=== PATIENT | female | born 1935 | race Caucasian/White ===

== ENCOUNTER 2019-03-20 12:14 | Emergency (ER) | payer MEDICARE, OTHER ==
[~2019-03-20] VITALS: Ht 157.5 cm; Wt 81.6 kg
[2019-03-20 12:14] VITALS: BP_SYST 178
--- NOTE | 2019-03-20 12:14 | NUR ---
BROUGHT IN BY [facility], PLACED IN BED #2, REPORT GIVEN TO SUKUMAR
--- NOTE | 2019-03-20 12:30 | NUR ---
Pt brought by [facility]UZ[facility], pt presents to ER with chest pain starting 2 hours ago , VSS, skin pink and warm, cap refill <3, respirations even and unlabored.
--- NOTE | 2019-03-20 12:34 | NUR ---
Dr Mcintosh at bedside examining patient
[2019-03-20] MEDS ORDERED: NITROGLYCERIN 1 INCH (GM) OINT. TD ONE (12:45)
[2019-03-20] MEDS ORDERED: NITROGLYCERIN 0.4 MG TAB.SUBL SL ONE (12:45)
[2019-03-20 13:25] LABS: BASOPHILS % (AUTO) 0.4 % (0.0-2.0); EOSINOPHILS % (AUTO) 0.7 % (0.0-4.0); HEMATOCRIT 34.6 % (36-48); HEMOGLOBIN 11.2 g/dL (12.0-16.0); LYMPHOCYTES # (AUTO) 0.5 K/uL (1.0-5.5); LYMPHOCYTES % (AUTO) 8.2 % (20.5-51.5); MEAN CORPUSCULAR HEMOGLOBIN 29 pg (27-31); MEAN CORPUSCULAR HGB CONC 32 % (32-36); MEAN CORPUSCULAR VOLUME 90 fL (79.0-98.0); MONOCYTES # (AUTO) 0.5 K/uL (0.0-1.0); MONOCYTES % (AUTO) 8.9 % (1.7-9.3); NEUTROPHILS % (AUTO) 81.8 % (40.0-70.0); PLATELET COUNT (AUTO) 130 K/uL (130-430); RED BLOOD CELL COUNT(AUTO) 3.83 MIL/uL (4.2-6.2); RED CELL DISTRIBUTION WIDTH 16.8 % (9.0-15.0); WHITE BLOOD COUNT (AUTO) 6.1 K/uL (4.8-10.8)
[2019-03-20 13:42] LABS: ANION GAP 5 (5-15); CHLORIDE 101 mmol/L (98-107); GLUCOSE 191 mg/dL (70-99); POTASSIUM 3.4 mmol/L (3.5-5.1); SODIUM SERUM 133 mmol/L (136-145); UREA NITROGEN, BLOOD 43 mg/dL (8-21)
[2019-03-20 13:46] LABS: ALANINE AMINOTRANSFERASE 21 U/L (12-78); ALBUMIN 3.3 g/dL (3.4-4.8); ASPARTATE AMINOTRANSFERASE 14 U/L (10-37); TOTAL BILIRUBIN 0.6 mg/dL (0.0-1.0)
[2019-03-20] MEDS ORDERED: FUROSEMIDE 40 MG/4 ML VIAL IVP ONE (16:30)
[2019-03-20] MEDS ORDERED: traMADol HCL HCL 50 MG TABLET (ULTRAM) PO ONE (16:30)
[2019-03-20] MEDS ORDERED: traMADol HCL HCL 50 MG TABLET (ULTRAM) ONE (17:00)
--- NOTE | 2019-03-20 17:41 | NUR ---
Patient to be transferred to [facility]. Is being transferred due to higher level of care. Receiving facility has accepting physician and available space. ER physician has signed transfer form. Patient or responsible constitution party has agreed to transfer and signed form. Patient belongings inventoried and will be sent with patient. Copy of nursing notes, lab reports, EKG, Physicians Orders and X-rays to be sent with patient. Report called to YANG Baldwin at receiving facility. Receiving physician is Dr. Lopez. [facility] service has been called for transfer. ETA is now.
[2019-03-20 17:42] VITALS: BP_SYST 150
== END 2019-03-20 17:42 | disposition short-term general hospital (02) ==
LOC: SED 12:14
DX: R07.89 Other chest pain (principal); E11.9 Type 2 diabetes mellitus without complications; Z88.0 Allergy status to penicillin; Z88.6 Allergy status to analgesic agent
CPT/HCPCS: 36415; 71045; 80053; 82550; 84484; 85025; 85379; 96374; 99285; J1940

== ENCOUNTER 2019-03-31 08:31 | Emergency (ER) | payer MEDICARE, OTHER ==
[~2019-03-31] VITALS: Ht 157.5 cm; Wt 81.6 kg
[2019-03-31 08:31] VITALS: BP_SYST 179
--- NOTE | 2019-03-31 08:31 | NUR ---
BROUGHT IN BY [facility], PLACED IN BED #6 AND TRIAGED. REPORT GIVEN TO JEANCARLOS
--- NOTE | 2019-03-31 08:32 | NUR ---
Patient came in by EMS from [facility]. Patient has had a recent CA and is complaining of chest pain x3 days. Patient denies nausea and diarrhea. On examination patient has left upper quadrant pain radiating to the back made worse on palpation.
--- NOTE | 2019-03-31 08:55 | NUR ---
ER Dr. Johnson at bedside examining patient.
[2019-03-31] MEDS ORDERED: NACL 0.9% 1,000 ML IV ONE (09:11)
[2019-03-31] MEDS ORDERED: MORPHINE 2 MG/ML INJ. SYRINGE IVP ONE (09:15)
[2019-03-31] MEDS ORDERED: FAMOTIDINE PF 20 MG/2 ML VIAL IVP ONE ×2 (09:15→14:30)
--- NOTE | 2019-03-31 09:49 | NUR ---
Patient transported to radiology via gurney, accompanied by operating room surgical technician.
[2019-03-31 09:56] LABS: BASOPHILS % (AUTO) 0.6 % (0.0-2.0); EOSINOPHILS # (AUTO) 0.1 K/uL (0.0-0.4); EOSINOPHILS % (AUTO) 1.2 % (0.0-4.0); HEMATOCRIT 29.5 % (36-48); HEMOGLOBIN 9.5 g/dL (12.0-16.0); LYMPHOCYTES # (AUTO) 0.7 K/uL (1.0-5.5); LYMPHOCYTES % (AUTO) 10.2 % (20.5-51.5); MEAN CORPUSCULAR HEMOGLOBIN 29 pg (27-31); MEAN CORPUSCULAR HGB CONC 32 % (32-36); MEAN CORPUSCULAR VOLUME 91 fL (79.0-98.0); MONOCYTES # (AUTO) 0.7 K/uL (0.0-1.0); MONOCYTES % (AUTO) 11.2 % (1.7-9.3); NEUTROPHILS % (AUTO) 76.8 % (40.0-70.0); PLATELET COUNT (AUTO) 126 K/uL (130-430); RED BLOOD CELL COUNT(AUTO) 3.26 MIL/uL (4.2-6.2); RED CELL DISTRIBUTION WIDTH 16.5 % (9.0-15.0); WHITE BLOOD COUNT (AUTO) 6.5 K/uL (4.8-10.8)
[2019-03-31 10:10] LABS: ANION GAP 2 (5-15); CALCIUM 7.6 mg/dL (8.4-11.0); CHLORIDE 97 mmol/L (98-107); CREATININE 1.19 mg/dL (0.55-1.30); GLUCOSE 157 mg/dL (70-99); SODIUM SERUM 133 mmol/L (136-145); UREA NITROGEN, BLOOD 35 mg/dL (8-21)
[2019-03-31 10:15] LABS: ALANINE AMINOTRANSFERASE 14 U/L (12-78); ALBUMIN 2.7 g/dL (3.4-4.8); ASPARTATE AMINOTRANSFERASE 7 U/L (10-37); TOTAL BILIRUBIN 0.7 mg/dL (0.0-1.0)
[2019-03-31] MEDS ORDERED: MORPHINE 4 MG/ML INJ. SYRINGE IVP ONE (10:45)
[2019-03-31 11:45] LABS: BILIRUBIN,URINE NEGATIVE (NEGATIVE); BLOOD, URINE 2+ (NEGATIVE); CLARITY/URINE CLEAR (CLEAR); COLOR,URINE YELLOW (YELLOW); GLUCOSE,URINE NEGATIVE (NEGATIVE); KETONES,URINE NEGATIVE (NEGATIVE); LEUKOCYTE ESTERASE ,URINE 1+ (NEGATIVE); NITRITE, URINE NEGATIVE (NEGATIVE); PROTEIN URINE TRACE (NEGATIVE); UROBILINOGEN,URINE 0.2 (0.2-1.0)
[2019-03-31 11:49] LABS: BACTERIA,URINE MODERATE /HPF (None Seen); WBC,URINE 50-80 /HPF (0-3)
[2019-03-31] MEDS ORDERED: LEVOFLOXACIN 500 MG/D5W 100 ML IV ONE (12:45)
--- NOTE | 2019-03-31 14:37 | NUR ---
Spoke with MARK Clemente. Patient to be transferred to [facility]. MD accepting is Dr. Pop Slade. Call report to [phone]. ALS to pick up driver, AMBUSERVE at [id number].
--- NOTE | 2019-03-31 14:41 | NUR ---
X-ray at bedside.
--- NOTE | 2019-03-31 15:10 | NUR ---
Patient to be transferred to [facility]. Is being transferred due to higher level of care. Receiving facility has accepting physician and available space. ER physician has signed transfer form. Patient or responsible democrat has agreed to transfer and signed form. Patient belongings inventoried and will be sent with patient. Copy of nursing notes, lab reports, EKG, Physicians Orders and X-rays to be sent with patient. Report called to Matilde at receiving facility. Receiving physician is Dr. Slade. [facility] service has been called for transfer. ETA is now.
[2019-03-31 15:13] VITALS: BP_SYST 148
== END 2019-03-31 15:13 | disposition short-term general hospital (02) ==
LOC: SED 08:31
DX: N12 Tubulo-interstitial nephritis, not specified as acute or chronic (principal); K92.2 Gastrointestinal hemorrhage, unspecified; J18.9 Pneumonia, unspecified organism; E11.9 Type 2 diabetes mellitus without complications; I10 Essential (primary) hypertension; K21.9 Gastro-esophageal reflux disease without esophagitis; Z88.0 Allergy status to penicillin; Z88.5 Allergy status to narcotic agent
CPT/HCPCS: 36415; 71045; 74176; 80053; 81000; 83605; 85025; 87086; 96365; 96375; 96376; 99285; J1956; J2270 ×2; J3490; J7030

== ENCOUNTER 2019-05-22 02:28 | Emergency (ER) | payer MEDICARE, OTHER ==
[~2019-05-22] VITALS: Ht 165.1 cm; Wt 72.6 kg
[2019-05-22 02:30] VITALS: BP_SYST 179
--- NOTE | 2019-05-22 02:30 | NUR ---
Pt BIB BLS and placed to ER bed 06, to classroom monitor. Pt from [facility] s/p syncopal episode and fall sustaining a ~7 cm lac to Right Forehead. Bleeding oozing from lac site, controlled with pressure dsg. Pt AAOX4, pt unable to recall falling or injury. Pain 8/10 to head and neck. No neck trauma noted. Pt report given to YANG Yanez.
--- NOTE | 2019-05-22 03:00 | NUR ---
Pt presents to er with a 2x4cm laceration in right forehead. bleeding, pressure drsg applied. pt states that while standing beside her bed , her sight turned dark. when she woke up she already was in the ambulance being brought to the hospital.
--- NOTE | 2019-05-22 03:50 | NUR ---
ER at bedside examining patient.
[2019-05-22] MEDS ORDERED: MORPHINE 2 MG/ML INJ. SYRINGE IM ONE (04:00)
[2019-05-22] MEDS ORDERED: HYDROcodone/ACETAMIN 5-325 MG TAB (NORCO/ VICODIN) PO ONE (04:00)
--- NOTE | 2019-05-22 04:30 | NUR ---
dr dos santos addressing laceration with beau. layla applied afterwards.
--- NOTE | 2019-05-22 05:00 | NUR ---
pranay from [facility] updated on status. tel [phone].
--- NOTE | 2019-05-22 06:00 | NUR ---
daughter janene updated on condition.
--- NOTE | 2019-05-22 06:20 | NUR ---
incontinent of stool and urine. cleaned. toya-care rendered. moe well.
[2019-05-22] MEDS ORDERED: MORPHINE 2 MG/ML INJ. SYRINGE ONE (06:59)
--- NOTE | 2019-05-22 07:20 | NUR ---
Patient given written and verbal discharge instructions and verbalizes understanding. ER MD discussed with patient the results and treatment provided. Patient in stable condition. ID arm band removed. No Rx given. Patient educated on pain management and to follow up with PMD. Pain Scale 0/10. Opportunity for questions provided and answered. Medication side effect fact sheet provided.
[2019-05-22 07:26] VITALS: BP_SYST 179
== END 2019-05-22 07:26 | disposition home or self-care (01) ==
LOC: SED 02:28
DX: S01.01XA Laceration without foreign body of scalp, initial encounter (principal); I10 Essential (primary) hypertension; E11.9 Type 2 diabetes mellitus without complications; K21.9 Gastro-esophageal reflux disease without esophagitis; Z88.0 Allergy status to penicillin; Z88.5 Allergy status to narcotic agent; W18.39XA Other fall on same level, initial encounter; Y93.89 Activity, other specified; Y92.89 Other specified places as the place of occurrence of the external cause; Y99.8 Other external cause status
CPT/HCPCS: 12001; 96372; 99283; J2270

== ENCOUNTER 2021-01-29 19:38 | Emergency (ER) | payer MEDICARE, OTHER, SELFPAY ==
--- NOTE | 2021-01-29 19:45 | NUR ---
Placed in room 1 . Placed on registered nurse cardiac telemetry, blood pressure machine and pulse oximeter. To gown for exam. Side rails up. Report given to July.
--- NOTE | 2021-01-29 19:47 | NUR ---
Note malissa in ED - 01/29/21 at 1956 by [id number] Patient to bed 2 to [facility] for evaluation. Side rails up.
--- NOTE | 2021-01-29 19:47 | NUR ---
Patient BIB by ALS/EMS from [facility]. C/O chest pain x today. Per reported, patient had chest pain today, EKG-normal, Given Nitro X1 and ASA 325 mg PO STAT at the scence, pain rate 7/10 to 2/10. Patient reported, had right chest pain on and off over a year, last night more pain, when patient arrived, right chest pain, pain rate 7/10, no radiate, Hx HTN, DM, Renal Failure.
[2021-01-29 19:49] VITALS: BP_SYST 183
--- NOTE | 2021-01-29 19:50 | NUR ---
MRSA and COVID-19 swabs collected and sent to lab.
--- NOTE | 2021-01-29 19:54 | NUR ---
JOHNY Moncada at bedside examining patient.
[2021-01-29] MEDS ORDERED: LORazepam 2 MG/ML VIAL IVP ONE (20:00)
[2021-01-29] MEDS ORDERED: NITROGLYCERIN 1 INCH (GM) OINT. TP ONE (20:00)
[2021-01-29] MEDS ORDERED: ERGO1250 PO (20:05)
[2021-01-29] MEDS ORDERED: FURO-150 PO (20:05)
[2021-01-29] MEDS ORDERED: HYDR-4038 PO (20:05)
[2021-01-29] MEDS ORDERED: NITSL SL (20:05)
[2021-01-29] MEDS ORDERED: METO50TA7 PO (20:05)
[2021-01-29] MEDS ORDERED: PRED5TAB PO (20:05)
[2021-01-29] MEDS ORDERED: LEVO750T45 PO (20:05)
[2021-01-29] MEDS ORDERED: SENN8.6T19 PO (20:05)
[2021-01-29] MEDS ORDERED: ISOS30TA85 PO (20:05)
[2021-01-29] MEDS ORDERED: INSU100V9 SQ (20:05)
[2021-01-29] MEDS ORDERED: TRAM50TA2 PO (20:05)
[2021-01-29] MEDS ORDERED: HUM10VIA SQ (20:05)
[2021-01-29] MEDS ORDERED: METH1TAB35 PO (20:05)
--- NOTE | 2021-01-29 20:07 | NUR ---
Medication reconciliation completed with information provided by facility. Any prior medication reconciliation on file was reviewed and corrected.
--- NOTE | 2021-01-29 20:07 | NUR ---
CXR at bedside.
[2021-01-29 20:10] LABS: BASOPHILS # (AUTO) 0.1 K/uL (0.0-0.2); BASOPHILS % (AUTO) 1.9 % (0.0-2.0); EOSINOPHILS # (AUTO) 0.1 K/uL (0.0-0.4); EOSINOPHILS % (AUTO) 2.9 % (0.0-4.0); HEMATOCRIT 30.7 % (36-48); HEMOGLOBIN 10.1 g/dL (12.0-16.0); LYMPHOCYTES # (AUTO) 0.8 K/uL (1.0-5.5); LYMPHOCYTES % (AUTO) 17.2 % (20.5-51.5); MEAN CORPUSCULAR HEMOGLOBIN 29 pg (27-31); MEAN CORPUSCULAR HGB CONC 33 % (32-36); MEAN CORPUSCULAR VOLUME 90 fL (79.0-98.0); MONOCYTES # (AUTO) 0.4 K/uL (0.0-1.0); MONOCYTES % (AUTO) 8.3 % (1.7-9.3); NEUTROPHILS # (AUTO) 3.3 K/uL (1.8-7.7); NEUTROPHILS % (AUTO) 69.7 % (40.0-70.0); PLATELET COUNT (AUTO) 155 K/uL (130-430); RED BLOOD CELL COUNT(AUTO) 3.44 MIL/uL (4.2-6.2); RED CELL DISTRIBUTION WIDTH 15.9 % (9.0-15.0); WHITE BLOOD COUNT (AUTO) 4.7 K/uL (4.8-10.8)
[2021-01-29] MEDS ORDERED: MORPHINE 4 MG INJ. 4 MG/ML VIAL IVP ONE (20:15)
[2021-01-29 20:20] LABS: ANION GAP 4 (5-15); CALCIUM 8.7 mg/dL (8.4-11.0); CHLORIDE 101 mmol/L (98-107); CREATININE 1.45 mg/dL (0.55-1.30); GLUCOSE 390 mg/dL (70-99); SODIUM SERUM 138 mmol/L (136-145); UREA NITROGEN, BLOOD 48 mg/dL (8-21)
[2021-01-29 20:21] LABS: INR 0.9 (0.8-1.2); PROTHROMBIN TIME 9.9 SECS (9.5-12.5)
[2021-01-29 20:26] LABS: ALANINE AMINOTRANSFERASE 28 U/L (12-78); ALBUMIN 3.4 g/dL (3.4-4.8); ASPARTATE AMINOTRANSFERASE 14 U/L (10-37); TOTAL BILIRUBIN 0.4 mg/dL (0.0-1.0)
[2021-01-29] MEDS ORDERED: ACET-73 PO (20:28)
[2021-01-29] MEDS ORDERED: CYCL25CA24 PO ×2 (20:28)
[2021-01-29] MEDS ORDERED: BENZTROPINE MESYLATE 2 MG/ 2 ML AMP IVP ONE (21:30)
[2021-01-29] MEDS ORDERED: HALOPERIDOL LACTATE 5 MG/ML VIAL IVP ONE (21:30)
--- NOTE | 2021-01-29 21:34 | NUR ---
Patient resting quietly. No acute distress noted. Vital signs within normal range.
[2021-01-29] MEDS ORDERED: MORPHINE 2 MG/ML INJ. SYRINGE IVP ONE (21:45)
--- NOTE | 2021-01-29 23:04 | NUR ---
Patient to be transferred to [facility]. Is being transferred due to higher level of care. Receiving facility has accepting physician and available space. ER physician has signed transfer form. Patient or responsible libertarian has agreed to transfer and signed form. Patient belongings inventoried and will be sent with patient. Copy of nursing notes, lab reports, EKG, Physicians Orders and X-rays to be sent with patient. Report called to at receiving facility. Receiving physician is Dr. Lopez. [facility] ambulance service has been called for transfer. ETA is 10 minutes.
[2021-01-29 23:14] VITALS: BP_SYST 159
--- NOTE | 2021-01-29 23:15 | NUR ---
Patient transfer to [facility] via ALS/EMS.
== END 2021-01-29 23:15 | disposition short-term general hospital (02) ==
LOC: SED 19:38
DX: R07.89 Other chest pain (principal); I10 Essential (primary) hypertension; E11.9 Type 2 diabetes mellitus without complications; I25.2 Old myocardial infarction; K21.9 Gastro-esophageal reflux disease without esophagitis; Z88.0 Allergy status to penicillin; Z88.5 Allergy status to narcotic agent; Z79.899 Other long term (current) drug therapy; Z20.822 Contact with and (suspected) exposure to COVID-19
CPT/HCPCS: 36415; 71045; 80053; 82962; 83880; 84484; 85025; 85610; 87081; 87426; 93005; 96374; 96376; 99285; J2270 ×2